=== PATIENT | male | born 1995 | race Caucasian/White ===

== ENCOUNTER 2017-01-16 12:42 | Emergency (ER) | payer SELFPAY ==
--- NOTE | 2017-01-21 08:56 | ER ---
ADMIT: 01/16/2017 RM/LOC: ER [facility] MR#: [id number] [address] [id number] RIK STEPHENS [address] [place] [address] Emergency Room Report SEX: M AGE: 21 : 1995 DATE: 01/16/2017 CHIEF COMPLAINT: Right index finger laceration. HISTORY OF PRESENT ILLNESS: A 21-year-old white male, who presents to the ER after sustaining an injury at work. 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 States this happened just prior to arrival. His customer engagement manager brought him to the ER for evaluation and management of this wound. Denies any numbness, tingling, but just states it feels like it is throbbing. Rates the pain as 9/10. Otherwise, healthy. ALLERGIES: NO KNOWN DRUG ALLERGIES. TETANUS IS UP TO DATE. COURSE IN THE EMERGENCY ROOM: PHYSICAL EXAM: Right index finger shows a 1 cm superficial laceration of the right index finger, clean in nature. No obvious debris in the wound. Neurovascularly, he is intact to light touch. He has brisk capillary refill. Otherwise uninjured. PROCEDURE NOTE: 1 cm laceration repair of right index finger. The wound was thoroughly cleaned with Ultradex. Anesthetized using digital block fashion. Proximal phalanx was cleaned with Betadine. 5 mL of lidocaine injected. After anesthesia was achieved, the wound was thoroughly cleaned with Betadine and irrigated with saline, explored to the base. No obvious foreign bodies identified. It was closed using five 5-0 Prolene sutures. Wound edges were well everted. It was dressed appropriately. Patient also brings in documentation from work. I did fill out his ADMIT: 01/16/2017 RM/LOC: ER [facility] MR#: [id number] [id number] [id number] RIK STEPHENS [address] [place] [address] Emergency Room Report SEX: M AGE: 21 : 1995 restrictions, restricting him to no submerging the wound until the sutures are out and to keep the wound clean and dry. He also brings in paperwork for drug test, he was referred to the laboratory for completion of this task. IMPRESSION: Right index finger laceration. DISPOSITION: The patient was discharged home. He is to monitor the wound for any infection. Follow up with Dr. Gandhi as needed. He should follow up with Dr. Gandhi in 7 days to have the sutures removed. Keep clean and dry. Do not submerge in water until stitches are out. Tylenol or ibuprofen as needed for pain. Certainly return with any worsening signs or symptoms. Discharged in stable condition. AMARJIT Clark / Alfa Lei MD / teresa JOB #: [id number] CC: Alfa Lei MD, Attending Physician Lorraine Gandhi MD, Family Physician
== END 2017-01-16 13:45 | disposition home or self-care (01) ==
LOC: ER 12:42
PROC: 0HQFXZZ Repair Right Hand Skin, External Approach (ICD-10-PCS; principal; 2017-01-16)
DX: S61.210A Laceration without foreign body of right index finger without damage to nail, initial encounter (principal); F17.210 Nicotine dependence, cigarettes, uncomplicated; Z88.2 Allergy status to sulfonamides; W26.0XXA Contact with knife, initial encounter; Y93.G3 Activity, cooking and baking; Y92.69 Other specified industrial and construction area as the place of occurrence of the external cause